=== PATIENT | male | born 1975 | race Caucasian/White ===

== ENCOUNTER 2020-08-02 10:34 | Outpatient (CLI) | payer MEDICARE, MEDICAID, SELFPAY ==
--- NOTE | ~2020-08-02 | US_ITS ---
EXAMINATION: US venous doppler [facility] DATE: 08/02/2020 11:15 INDICATION: Bilateral lower limb swelling TECHNIQUE: Dao scale images without and with compression and Doppler images of the bilateral lower e xtremity veins were obtained. COMPARISON: None FINDINGS: The bilateral peroneal veins are not well demonstrated. The right common femoral vein, profunda femoral vein, femoral vein, popliteal vein, posterior tibial veins, and greater saphenous vein are patent. The left common femoral vein, profunda femoral vein, femoral vein, popliteal vein, posterior tibial v eins, and greater saphenous vein are patent. IMPRESSION: 1. Patent bilateral lower extremity veins. No evidence of deep venous thrombosis. Reviewed, dictated and finalized at location A. IMPRESSION: 1. Patent bilateral lower extremity veins. No evidence of deep venous thrombosi s.
== END 2020-08-02 10:35 | disposition home or self-care (01) ==
PROVIDERS: PCP Internal Medicine; Visit Provider Internal Medicine
DX: R60.9 Edema, unspecified (principal)
CPT/HCPCS: 93970

== ENCOUNTER 2023-06-04 09:50 | Emergency (ER) | payer MEDICARE, MEDICAID, SELFPAY ==
--- NOTE | ~2023-06-04 | US_ITS ---
EXAMINATION: US venous doppler [facility] DATE: 06/04/2023 14:15 INDICATION: Left lower limb pain, swelling and erythema TECHNIQUE: Grayscale ultrasound images without and with compression and Doppler ultrasound images of the left lower extremity veins were obtained. COMPARISON: None. FINDINGS: The visualized portions of left common femoral vein, profunda (deep) femoral vein, femoral vein, popl iteal vein, peroneal veins, posterior tibial veins, gastrocnemius vein and greater saphenous vein out flow are patent. There is focal region of edema in the deep subcutaneous fat along the anterior left lower leg reportedly at the region of concern which can be seen in setting of cellulitis. IMPRESSION: 1. No deep venous thrombosis in the left lower limb. Reviewed, dictated and finalized at location A.
[2023-06-04 10:58] VITALS: BP 125/85; PULSE 100; RESP 20; TEMP 36.3; O2SAT 95
[2023-06-04 13:06] LABS: Basophils Absolute Auto 0.1 K/mm3 (0.0-0.1); Eosinophils Absolute Auto 0.2 K/mm3 (0-0.3); Eosinophils Percent Auto 2.2 % (0-4.4); Hematocrit 43.9 % (42.0-52.0); Hemoglobin 14.4 g/dL (14.0-18.0); Immature Granulocyte Absolute 0.06 K/mm3 (0.00-0.031); Immature Granulocyte Percent A 0.7 % (0-0.5); Lymphocytes Absolute Auto 1.93 K/mm3 (0.9-3.2); Lymphocytes Percent Auto 24.1 % (18.3-44.2); Mean Corpuscular HGB Conc 32.8 g/dl (32-36); Mean Corpuscular Hemoglobin 29.5 pg (26-34); Mean Platelet Volume 10.4 fl (7.4-10.4); Monocytes Absolute Auto 0.6 K/mm3 (0.1-0.6); Neutrophils Absolute Auto 5.2 K/mm3 (1.3-6.7); Platelet Count Result 170 k/mm3 (150-375); Red Blood Count 4.88 M/mm3 (4.6-6.20); Red Cell Distribution Width 14.1 % (11.5-14.5)
--- NOTE | 2023-06-04 13:13 | ED.GENADULT ---
HPI - General Adult General Chief complaint: Skin/Abscess/Foreign Body Stated complaint: LLE infection? Time Seen by Provider: 06/04/23 12:17 History of Present Illness HPI narrative: 48-year-old male presenting to the emergency department for evaluation of worsening left lower extremity erythema. Patient is diabetic but has no prior history of cellulitis. Patient began developing symptoms on the at 13th and then was started on clindamycin as outpatient on the . Patient states yesterday he had increased generalized fatigue and presented to [facility]. At [facility] he was treated with IV antibiotics and they were going to admit him but they did not have a bed was available. Patient became frustrated with the ER bed he was an and left AMA. Related Data Allergies Allergy/AdvReac Type Severity Reaction Status Date / Time No Known Allergies Allergy Verified 06/04/23 12:34 Review of Systems Review of Systems: All systems reviewed & are unremarkable except as noted in HPI and below PMFSH Social History Social History Alcohol intake: current Exam Narrative: APPEARANCE: Well appearing, no pain, no distress, well-nourished. HEAD: normocephalic, atraumatic. EYES: PERRLA/EOMI, conjunctivae clear. NOSE: Normal no drainage NECK: Supple. No adenopathy, no masses. RESPIRATORY: Airway patent, respirations nonlabored. Clear to auscultation bilaterally, no rales, rhonchi, wheezing. CARDIOVASCULAR: Regular rate and rhythm without murmurs rubs or gallops. ABDOMINAL: Soft, nontender, nondistended, normal bowel sounds MUSCULOSKELETAL: Moves all extremities. Strength/ROM intact, No edema, No calf tenderness. NEURO: Alert. Cranial nerves II through XII intact. Grossly intact SKIN: Bilateral lower extremity edema with anterior johnson erythema on the left lower extremity Course Course Emergency Course: Patient was started on Bactrim and patient was discharged home with close follow-up with primary care physician. Vital Signs Vital signs: Vital Signs Temperature 97.3 F L 06/04/23 10:58 Pulse Rate 100 06/04/23 10:58 Respiratory Rate 20 06/04/23 10:58 Blood Pressure 125/85 06/04/23 10:58 Pulse Oximetry 95 06/04/23 10:58 Oxygen Delivery Room Air 06/04/23 10:58 Temperature 97.3 F L 06/04/23 10:58 Pulse Rate 100 03/20/24 10:58 Respiratory Rate 20 06/04/23 10:58 Blood Pressure 125/85 06/04/23 10:58 Pulse Oximetry 95 06/04/23 10:58 Oxygen Delivery Room Air 06/04/23 10:58 Medical Decision Making MDM Narrative Medical decision making narrative: 48-year-old male presenting ED for evaluation of lower extremity cellulitis. Patient is afebrile with no leukocytosis stable hemoglobin of 14.4. Patient has no elevated lactic acid patient's CMP shows no acute abnormalities. Patient does have some mild erythema on the anterior portion of his johnson this is not circumferential. Patient will be started Bactrim as outpatient. Ultrasound was negative for DVT. Patient only took 4 days the clindamycin. Patient was encouraged close follow-up with his primary care physician. Patient is also educated on reasons to return to the emergency department. Differential Diagnosis Differential Diagnosis: DVT, cellulitis, lower extremity edema Vital Signs Vital Signs: Vital Signs Temperature 97.3 F L 06/04/23 10:58 Pulse Rate 100 06/04/23 10:58 Respiratory Rate 20 06/04/23 10:58 Blood Pressure 125/85 06/04/23 10:58 Pulse Oximetry 95 06/04/23 10:58 Oxygen Delivery Room Air 06/04/23 10:58 Temperature 97.3 F L 06/04/23 10:58 Pulse Rate 100 06/04/23 10:58 Respiratory Rate 20 06/04/23 10:58 Blood Pressure 125/85 06/04/23 10:58 Pulse Oximetry 95 06/04/23 10:58 Oxygen Delivery Room Air 06/04/23 10:58 Lab Data Lab results reviewed: Yes I reviewed the patient's lab results. 06/04/23 12:58 06/04/23 12:58 Labs: Lab Res
[2023-06-04 13:16] LABS: Lactic Acid Reflex 1.2 mmol/L (0.7-2.0)
[2023-06-04 13:17] LABS: Alanine Aminotransferase 45 U/L (6-50); Albumin Level 3.9 g/dL (3.5-5.1); Alkaline Phosphatase 89 U/L (38-126); Anion Gap 5 mmol/L (8-16); Aspartate Amino Transferase 43 U/L (17-59); Bilirubin,Total 0.7 mg/dL (0.2-1.3); Blood Urea Nitrogen 13 mg/dL (9-20); Calcium 8.7 mg/dL (8.4-10.2); Carbon Dioxide 29 mmol/L (22-30); Chloride 100 mmol/L (98-107); Estimated CRCL calculation 160 ml/min; Estimated Glomerular Filt Rate > 60; Glucose 362 mg/dL (65-110); Potassium 4.3 mmol/L (3.4-5.0); Sodium 134 mmol/L (137-145)
[2023-06-04 13:30] LABS: INR 1.1; Partial Thromboplastin Time 29.6 Seconds (22.3-36.8); Prothrombin Time 14.5 Seconds (11.1-14.7)
[2023-06-04] MEDS: SULFAMETHOXAZOLE/TRIMETHOPRIM 800/160 MG DS TABLET 1 TAB PO (14:07)
== END 2023-06-04 14:50 | disposition home or self-care (01) ==
PROVIDERS: Emergency Provider Emergency Medicine; PCP Internal Medicine
DX: L03.116 Cellulitis of left lower limb (principal); M79.662 Pain in left lower leg; E11.9 Type 2 diabetes mellitus without complications
CPT/HCPCS: 36415; 80053; 83605; 85025; 85610; 85730; 93971; 99284; A9270

== ENCOUNTER 2024-05-10 10:22 | Emergency (ER) | payer MEDICARE, MEDICAID, SELFPAY ==
[2024-05-10 10:51] VITALS: BP 151/83; PULSE 103; RESP 18; TEMP 36.2; O2SAT 98
--- OUTSIDE RECORDS SUMMARY | 2024-05-10 11:41 | XMS_ITS | Clinical Summary ---
Author Organization [facility] [employer] Address [address] [place] [address] Care Team Providers Care Certified Fire Investigator Name Role Phone Ashkan Bowling Porsche HINKLE-CARD CUTTER Primary Care Provider Source Comments [facility] [employer],non-owned Affiliates and Associated Physician Practices is amultiple site organization consisting of ambulatory clinics and hospital sitesin [place], [place], [place] and [place]. This disclosure is being madepursuant to the Care Everywhere program and may not contain all information available regarding this patient. Last updated 17.[facility] [employer] Allergies No known active allergies Medications * Be aware that medications may not be up to date on this document. Alwaysverify current medications with the patient. Medication Sig Dispensed Refills Start Date End Date Status buPROPion XL 24hr (WELLBUTRIN-XL) 300 MG tablet bupropion HCl XL 300 mg 24 hr tablet, extended release TK 1 T PO QD IN THE MORNING Active JANUMET 50-1000 MG tablet 2 tablets once daily 01/18/2019 Acti ve amLODIPine (NORVASC) 10 MG tablet amlodipine 10 mg tablet TK 1 T PO QD Active metFORMIN (GLUCOPHAGE) 500 MG tablet Take 2,000 mg by mouth once daily as needed Active HYDROcodone-acetamin ophen (NORCO) 10-325 MG tablet every 8 hours as needed 0 12/24/2018 Active naproxen (NAPROSYN) 500 MG tablet 2 times daily 01/18/2019 Active raNITIdine (ZANTAC) 150 MG tablet 3 times daily as needed 2 12/24/2018 Active Active Problems Problem Noted Date Diagnosed Date Acquired trigger finger 01/18/2019 Condyloma acuminatum 01/18/2019 Elevated liver enzymes 01/18/2019 Chronic midline low back pain with left-sided sc iatica 09/28/2015 Essential hypertension, benign 04/05/2014 DDD (degenerative disc disease), lumbar 06/23/19 14 Obesity, Class III, BMI 40-49.9 (morbid obesity) 06/22/2013 Family History Medical History Relation Name Comments COPD - Chronic Obstructive Pulmonary Disease Mother Diabetes - Type 2 Mother Relation Name Status Comments Mother Social History Tobacco Use Types Packs/Day Years Used Date Smoking Tobacco: Every Day Smokeless Tobacco: Never Comments:15 cigarettes/day Alcohol Use Standard Drinks/Week Comments Not Currently 0 (1 standard drink = 0.6 oz pur e alcohol) Sex and Gender Information Value Date Recorded Sex Assigned at Not on file Gender Identity Not on file Sexual Orientation Not on file Last Filed Vital Signs Vital Sign Reading Time Taken Comments Blood Pressure 131/80 01/18/2019 1:48 PM LAY MIDWIFE Pulse 92 01/18/2019 1:48 PM LAY MIDWIFE Temperature 36.7 C (98 F) 01/18/2019 1:48 PM LAY MIDWIFE Respiratory Rate 22 01/18/2019 1:48 PM LAY MIDWIFE Oxygen Saturation 94% 01/18/2019 1:48 PM LAY MIDWIFE Inhaled Oxygen Concentration - - Weight 152.9 kg (337 lb 1.6 oz) 01/18/2019 1:48 PM LAY MIDWIFE Height 193 cm (6' 4 ) 01/18/2019 1:48 PM LAY MIDWIFE Body Mass Index 41.03 01/18/2019 1:48 PM LAY MIDWIFE Plan of Treatment Health Maintenance Due Date Last Done Comments COLOGUARD (AGES 45-75) - COL ON CA SCREENING 1975 COLON MONITORING 1975 COLONOSCOPY - COLON CA SCREENING 1975 CT COLONOGRAPHY - COLON CA SCREENING 1975 Colorectal Cancer Screening 1975 FIT - COLON CA SCREENING 1975 FLEX SIG - COLON CA SCREENING 1975 LIPID TESTING 1975 HIV SCREENING 06/02/1990 HEPATITIS C SCREENING 05/29/1993 DTAP/TDAP/TD VACCINES (1 - Tdap) 06/02/1994 HEPATITIS B VACCINE (1 of 3 - 19+ 3-dose series) 06/02/1994 PNEUMOCOCCAL VACCINE (1 of 2 - PCV) 06/02/1994 SCREENING FOR DIABETES 01/18/2019 COVID-19 VACCINE (1 - 2023-2 5 season) 2023 INFLUENZA VACCINE (#1) 2023 DEPRESSION SCREENING 03/17/2024 ZOSTER VACCINE (1 of 2) 06/02/2025 HIB VACCINE Aged Out No longer eligi ble based on patient's age to complete this topic HPV VACCINE Aged Out No longer eligi ble based on patient's age to complete this topic MENINGOCOCCAL (Group B) VACCINE Aged Out No longer eligible based on patient's age to complete this topic MENINGOCOCCAL VACCINE Aged Out No noe dorie eligible based on patient's age to complete this topic Goals Goal Patient Goal Type Associated Problems Recent Progress Patient-Stated? Author Medication Management General No Nicky Mchugh, RN Note: Expected end date: ongoing Interventions: Take all medications as prescribed Care Teams Certified Fire Investigator Relationship Specialty Start Date End Date Ashkan Bowling, HEAD START ASSISTANT TEACHER-CARD CUTTER [address] [place] [address] PCP - General 01/18/19
--- OUTSIDE RECORDS SUMMARY | 2024-05-10 11:41 | XMS_ITS | Continuity of Care Document ---
Author Organization [facility] Address [address] [place] [address] [place] [address] Phone Care Team Providers Care Extension Clerk Name Role Phone Khanh Garcia MD Unavailable Unavailable Allergies, Adverse Reactions, Alerts Substance Reaction Status Criticality No Known Allergies Active No Inform ation Medications Medication Instructions Dosage Effective Dates (start - stop) Status Comments Hinckley 10 mg-325 mg tablet take 1 by Oral route 2 times every day as needed 1 - Active PRN for pain, avoid driving or oeprate machines Xanax 1 mg tablet take 1 tablet by oral route 2 times every day as needed 1 MG - Active PRN for anxi ety, avoid driving or oeprate machines Norvasc 10 mg tablet take 1 tablet by oral route every day 10 MG - Active losartan 50 mg tablet take 1 tablet by oral route every day 50 MG - Active Procedures Procedure Date OFFICE/OUTPATIENT VISIT, EST Advance Directives Directive Yes / No Effective Date File Name No Information Encounters Encounter Description Practice Location Reason(s) For Visit Diagnoses Date Provider Providers Copied on Encounter OFFICE/OUTPA TIENT VISIT, EST [facility], [address] [place], [id number], [place] tel:[phone] [facility] Medicine chronic pain (chief complaint) anxiety1 (chief complaint) HTN (chief complaint) Essential (primary) hypertensionChronic pain syndromeGeneralized Anxiety Disorder [address] [place], [id number] , [place]. tel:[phone] Referring Provider: Khanh Garcia [address] [place] [address], [id number]. tel:[phone] Family History Family Member Type Diagnosis Age At Onset Father Problem (finding) Alive and well Mother Problem (finding) Mother Problem (finding) of lung CA Brother Problem (finding) Alive and well Father Problem (finding) uknknown Payers Payer name Insurance type Covered libertarian ID Authoriza tion(s) No Information Social History Type Description Quantity Date Captured Comments Alcohol Use Details No Caffeine Use Details Unknown Tobacco Use Status Cigarette smoker Smoking Status Current some day smoker Smoking Tobacco Use Details Cigarette: No Details Available Cigarette: No Details Available Sex Male Vital Signs Date / Time: Height Weight BMI Pulse Rate Blood Pressure Temperature Respiratory Rate Body Surface Area Head Circumference BMI percentile Pulse Ox Inhaled Ox 2:55 PM 76.00 in 321.00 lbs 39.0 7 kg/m eter (2) 96 /min 141/89 mm[Hg] 98.1 F 18 /min Chief Complaint And Reason For Visit From encounter dated '04/30/2016 13:45'. chronic pain (chief complaint). Description: Pt has chronic neck and back pain Pt has been taking nroco up to 6 per day from physician in [place] for chronic neck and back apin Pt denie any loss of blladder control. Pt denies any urine retention. Pt was told he needs to see PCP in [place]. Pt has 8/10 paink.pt has sciaita and leg numbness anxiety1 (chief complaint). Description: Pt has chronic anxiety Pt denies any depression or any suicidal thought Pt atkes xanax 2 mg TID from the physician in [place] Pt states that it is the only meds helping his anxiety Pt denie sany crying spells. HTN (chief complaint). Description: Pt takes losatan and norvasc. His BP is stable Plan Of Treatment Date Type Action Status No Information History Of Present Illness Encounter Date Complaint History Of Prese nt Illness chronic pain Pt has chronic n rogelio and back pain Pt has been taking nroco up to 6 per day from physician in [place] for chronic neck and back apin Pt denie any loss of blladder control. Pt denies any urine retention. Pt was told he needs to see PCP in [place]. Pt has 8/10 paink. pt has sciaita and leg numbness HTN Pt takes losatan and norvasc. His BP is stable anxiety1 Pt has chronic a nxiety Pt denies any depression or any suicidal thought Pt atkes xanax 2 mg TID from the physician in [place] Pt states that it is the only meds helping his anxiety Pt denie sany crying spells. Instructions Date Instruction Additional Infor mation Prescribed Activity and Exercise Education Related to Dietary Surveillance and Counseling Prescribed Diet Educ ation/Lifestyle Education Regarding Diet Related to Dietary Surveillance and Counseling Assessments Type Assessment Date assessment Essential (primary) hypertension assessment Chronic pain syndrome 7 assessment Generalized Anxiety Disorder Apr Mental Status Date Cognitive Assessment Orientation - [place] ed to time, place, person, situation.
--- OUTSIDE RECORDS SUMMARY | 2024-05-10 11:41 | XMS_ITS | Referral Summary ---
Author Organization [facility] Address [address] [address] Care Team Providers Care Litigation Claim Representative Name Role Phone Dash Ashkan Porsche HINKLE-DISTRIBUTION OPERATIONS SUPERVISOR Primary Care Provider Source Comments [facility],non-owned Affiliates and Associated Physician Practices is amultiple site organization consisting of ambulatory clinics and hospital sitesin [place], [place], [place] and [place]. This disclosure is being madepursuant to the Care Everywhere program and may not contain all information available regarding this patient. Last updated 17.[facility] Allergies No known active allergies Medications * [...] Class III, BMI 40-49.9 (morbid obesity) 06/22/2013 Social History Tobacco Use Types Packs/Day Years [...] Comments Blood Pressure 131/80 01/18/2019 1:48 PM STEEL POST INSTALLER SUPERVISOR Pulse 92 01/18/2019 1:48 PM STEEL POST INSTALLER SUPERVISOR Temperature 36.7 C (98 F) 01/18/2019 1:48 PM STEEL POST INSTALLER SUPERVISOR Respiratory Rate 22 01/18/2019 1:48 PM STEEL POST INSTALLER SUPERVISOR Oxygen Saturation 94% 01/18/2019 1:48 PM STEEL POST INSTALLER SUPERVISOR Inhaled Oxygen Concentration - - Weight 152.9 kg (337 lb 1.6 oz) 01/18/2019 1:48 PM STEEL POST INSTALLER SUPERVISOR Height 193 cm (6' 4 ) 01/18/2019 1:48 PM STEEL POST INSTALLER SUPERVISOR Body Mass Index 41.03 01/18/2019 1:48 PM STEEL POST INSTALLER SUPERVISOR Plan of Treatment Not on file Goals Goal Patient Goal Type Associated Problems Recent Progress Patient-Stated? Author Medication Management General No Nicky Mchugh, RN Note: Expected end date: ongoing Interventions: Take all medications as prescribed Care Teams Litigation Claim Representative Relationship Specialty Start Date End Date Ashkan Bowling, SIDING INSTALLER-DISTRIBUTION OPERATIONS SUPERVISOR [facility] [place] [address] PCP - General 01/18/19
--- OUTSIDE RECORDS SUMMARY | 2024-05-10 11:41 | XMS_ITS | Clinical Summary ---
Author Organization [facility] Address [facility] [place] [address] Care Team Providers Care Flight Engineer Helicopter Name Role Phone Unavailable Primary Care Provider Unavailabl e Medications No known medications Social History Tobacco Use Types Packs/Day Years Used Date Smoking Tobacco: Never Assessed Sex and Gender Information Value Date Recorded Sex Assigned at Not on file Legal Sex Male 4:59 PM CDT Gender Identity Not on file Sexual Orientation Not on file Last Filed Vital Signs Vital Sign Reading Time Taken Comments Blood Pressure 147/97 09/26/2017 10:13 AM CDT Pulse 93 09/26/2017 10:13 AM CDT Temperature - - Respiratory Rate - - Oxygen Saturation - - Inhaled Oxygen Concentration - - Weight 159.7 kg (352 lb) 09/26/2017 10:13 AM CDT Height 193 cm (6' 4 ) 09/26/2017 10:13 AM CDT Body Mass Index 42.85 09/26/2017 10:13 AM CDT Plan of Treatment Health Maintenance Due Date Last Done Comments Colorectal Cancer Screening Colonoscopy (10 Years) 1975 Annual Physical 06/02/1978 PHQ-2 (Physician [place]) 1987 Hepatitis C 06/02/1993 DTaP, Tdap and Td Vaccines ( 1 - Tdap) 06/02/1994 Hepatitis B Vaccines (1 of 3 - 19+ 3-dose series) 06/02/1994 COVID-19 Vaccine (2023-2 5 season) 2023 Influenza Adult (#1) 2023 PHQ-2 (Physician [place]) 03/17/2024 Meningococcal B Vaccine Aged Out No l onger eligible based on patient's age to complete this topic Meningococcal Vaccine Aged Out No noe dorie eligible based on patient's age to complete this topic Pneumococcal Vaccine: Pediat rics (0 to 5 Years) and At-Risk Patients (6 to 64 Years) Aged Out No longer eligible b ased on patient's age to complete this topic RSV Immunizations Under 20 Months Aged Out No longer eligible based on patient's age to complete this topic Insurance MEDICAID
--- OUTSIDE RECORDS SUMMARY | 2024-05-10 11:41 | XMS_ITS | Patient Health Summary ---
Author Organization [facility] Address [address] [place] [address] Care Team Providers Care Animal Behaviorist Name Role Phone Ashkan Bowling Porsche [facility] Primary Care Provider Note from [facility],non-owned Affiliates and Associated Physician Practices is amultiple site organization consisting of ambulatory clinics and hospital sitesin [place], [place], [place] and [place]. This disclosure is being madepursuant to the Care Everywhere program and may not contain all information available regarding this patient. Last updated 17.[facility] Allergies No known active allergies Medications * Be aware that medications may not be up to date on this document. Always verify current medications with the patient. * buPROPion XL 24hr (WELLBUTRIN-XL) 300 MG tablet bupropion HCl XL 300 mg 24 hr tablet, extended release TK 1 T PO QD IN THE MORNING * JANUMET 50-1000 MG tablet(Started 01/18/2019) 2 tablets once daily * amLODIPine (NORVASC) 10 MG tablet amlodipine 10 mg tablet TK 1 T PO QD * metFORMIN (GLUCOPHAGE) 500 MG tablet Take 2,000 mg by mouth once daily as needed * HYDROcodone-acetaminophen (NORCO) 10-325 MG tablet(Started 12/24/2018) every 8 hours as needed * naproxen (NAPROSYN) 500 MG tablet(Started 01/18/2019) 2 times daily * raNITIdine (ZANTAC) 150 MG tablet(Started 12/24/2018) 3 times daily as needed 2 refills left Active Problems Problem Noted Date Diagnosed Date [...] Comments Blood Pressure 131/80 01/18/2019 1:48 PM PATIENT SERVICE COORDINATOR Pulse 92 01/18/2019 1:48 PM PATIENT SERVICE COORDINATOR Temperature 36.7 C (98 F) 01/18/2019 1:48 PM PATIENT SERVICE COORDINATOR Respiratory Rate 22 01/18/2019 1:48 PM PATIENT SERVICE COORDINATOR Oxygen Saturation 94% 01/18/2019 1:48 PM PATIENT SERVICE COORDINATOR Inhaled Oxygen Concentration - - Weight 152.9 kg (337 lb 1.6 oz) 01/18/2019 1:48 PM PATIENT SERVICE COORDINATOR Height 193 cm (6' 4 ) 01/18/2019 1:48 PM PATIENT SERVICE COORDINATOR Body Mass Index 41.03 01/18/2019 1:48 PM PATIENT SERVICE COORDINATOR Care Teams Animal Behaviorist Relationship Specialty Start Date End Date Ashkan Bowling, FIRE MARSHAL REFINERY-AIR TRANSPORTATION PROVIDER [facility] [place] [address] PCP - General 01/18/19
--- OUTSIDE RECORDS SUMMARY | 2024-05-10 11:41 | XMS_ITS | CONTINUITY OF CARE DOCUMENT ---
Author Name izzy magana Address Unknown Organization [facility] Address [address] [place] [address] Phone [phone] Care Team Providers Care Cinder Snapper Name Role Phone Art Lopez MD Unavailable [phone] Art Lopez MD Unavailable [phone] INSURANCE PROVIDERS Payer name Policy type / Coverage type [place] red republican ID [place] MEDICARE Medicare [id number] HEALTHCARE AND FAMILY SERVICES Medicaid 1 [id number]
--- OUTSIDE RECORDS SUMMARY | 2024-05-10 11:41 | XMS_ITS | Clinical Summary ---
Author Organization [facility] Address [address] [place] [address] Care Team Providers Care Stock Clerk Name Role Phone Unavailable Primary Care Provider Unavailabl e Allergies Active Allergy Reactions Criticality Noted Date Comments Lisinopril Other (See Comments) 06/22/2013 Dizziness Medications losartan (COZAAR) 50 mg tablet TAKE 1 TABLET(50 MG) BY MOUTH DAILY 30 Tablet 5 02/02/2016 Active amLODIPine (NORVASC) 5 mg tablet Take 1 Tablet (5 mg) by mouth daily. 30 Tablet 5 03/30/2016 Active HYDROcodone-[place] taminophen (NORCO) 10-325 mg Tablet Take 1 Tablet by mouth every 4 hours as needed for Pain, Moderate or Pain, Severe. Max Daily Amount: 6 Tablet 180 Tablet 04/01/2016 Active ALPRAZolam (XANAX) 2 mg tablet Take 1 Tablet (2 mg) by mouth 3 times daily as needed for Anxiety. 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 05/2016 Chronic midline low back pain with left-sided sc iatica 09/28/2015 Essential hypertension, benign 04/05/2014 DDD (degenerative disc disease), lumbar 06/23/19 14 Anxiety 06/22/2013 Obesity, Class III, BMI 40-49.9 (morbid obesity) 06/22/2013 SHAYY (obstructive sleep apnea) 06/22/2013 Smoker 06/22/2013 Resolved Problems Problem Noted Date Diagnosed Date Resolved Date Opioid dependence, daily use 01/01/2016 03/19/2016 Chronic, continuous use of opioids 09/07/2015 01/01/2016 Chronic narcotic dependence 12/15/2014 09/07/2015 Numbness and tingling of both legs 09/22/2014 09/28/2015 Right foot pain 10/11/2013 09/28/2015 Chronic low back pain 06/22/20132016 Depression 06/22/2013 04/05/2014 Essential hypertension, benign 06/22/2013 08/11/2013 Family History Medical History Relation Name Comments Depression Brother 1 Seizures Brother 1 Migraines Brother 2 Asthma Mother Depression Mother Diabetes Mother High Cholesterol Mother Hypertension Mother Lung Cancer Mother Other Mother RA Thyroid Disease Mother Asthma Son Relation Name Status Comments Brother 1 Alive Brother 2 Mother Alive Son Alive Social History Tobacco Use Types Packs/Day Years Used Date Smoking Tobacco: Every Day Cigarettes 0.5 20 Smokeless Tobacco: Never Tobacco Cessation:Ready to Q uit: Yes; Counseling Given: Yes Alcohol Use Standard Drinks/Week Comments Yes 0 (1 standard drink = 0.6 oz pur e alcohol) Sex and Gender Information Value Date Recorded Sex Assigned at Not on file Legal Sex Male 1:48 PM CDT Gender Identity Not on file Sexual Orientation Not on file 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 Not on file Not on file Not o n file Last Filed Vital Signs Vital Sign Reading Time Taken Comments Blood Pressure 128/88 01/01/2016 1:19 PM CDT Pulse 103 01/01/2016 1:19 PM CDT Temperature - - Respiratory Rate - - Oxygen Saturation 94% 01/01/2016 1:19 PM CDT Inhaled Oxygen Concentration - - Weight 147 kg (324 lb) 01/01/2016 1:19 PM CDT Height 193 cm (6' 4 ) 01/01/2016 1:19 PM CDT Body Mass Index 39.44 01/01/2016 1:19 PM CDT Plan of Treatment Health Maintenance Due Date Last Done Comments DTAP/TDAP/TD VACCINES (1 - Tdap) 06/02/1994 HEPATITIS B VACCINES (1 of 3 - + 3-dose series) 05/15 COLORECTAL SCREENING 06/02/2020 Colorectal Cancer Screening 06/02/2020 FIT-DNA Q 3 years 06/02/2020 FIT/FOBT Q 1 year 06/02/2020 Flex Sig/CT Colonography Q 5 years 06/02/2020 INFLUENZA VACCINE (#1) 2023
[2024-05-10 13:12] LABS: Basophils Absolute Auto 0.1 K/mm3 (0.0-0.1); Basophils Percent Auto 0.9 % (0.2-1.2); Eosinophils Absolute Auto 0.2 K/mm3 (0-0.3); Hemoglobin 15.4 g/dL (14.0-18.0); Immature Granulocyte Absolute 0.06 K/mm3 (0.00-0.031); Immature Granulocyte Percent A 0.7 % (0-0.5); Lymphocytes Absolute Auto 2.87 K/mm3 (0.9-3.2); Lymphocytes Percent Auto 31.5 % (18.3-44.2); Mean Corpuscular HGB Conc 33.5 g/dl (32-36); Mean Corpuscular Hemoglobin 30.1 pg (26-34); Mean Corpuscular Volume 89.8 fl (80-100); Mean Platelet Volume 9.4 fl (7.4-10.4); Monocytes Absolute Auto 0.8 K/mm3 (0.1-0.6); Monocytes Percent Auto 9.2 % (2.6-8.5); Neutrophils Absolute Auto 5.1 K/mm3 (1.3-6.7); Neutrophils Percent Auto 55.7 % (45.5-73.1); Platelet Count Result 222 k/mm3 (150-375); Red Blood Count 5.12 M/mm3 (4.6-6.20); Red Cell Distribution Width 13.3 % (11.5-14.5); White Blood Count 9.1 K/mm3 (4.5-10.0)
[2024-05-10 13:30] LABS: Alanine Aminotransferase 23 U/L (6-50); Albumin Level 4.3 g/dL (3.5-5.1); Alkaline Phosphatase 57 U/L (38-126); Anion Gap 12 mmol/L (4-12); Aspartate Amino Transferase 23 U/L (17-59); Bilirubin,Total 0.7 mg/dL (0.2-1.3); Blood Urea Nitrogen 17 mg/dL (9-20); Calcium 9.5 mg/dL (8.4-10.2); Carbon Dioxide 27 mmol/L (22-30); Chloride 102 mmol/L (98-107); Estimated CRCL calculation 100 ml/min; Estimated Glomerular Filt Rate > 60; Glucose 96 mg/dL (65-110); Lipase 40 U/L (23-300); Potassium 4.6 mmol/L (3.4-5.0); Sodium 141 mmol/L (137-145)
--- NOTE | 2024-05-10 13:47 | ED_ITS ---
HPI - Abdominal Pain General Chief Complaint: Abdominal Pain Stated Complaint: abd pain Focused HPI:48-year-old male presents to emergency department for epigastric abdominal pain. Patient states last Friday he began to be constipated, went to [facility] on Friday. States he received 3 L of fluids which initiated bowel movement. He was then discharged home with a diagnosis of abdominal pain and dehydration. He states he was feeling better and Friday night he had pizza and bread sticks which made epigastric abdominal pain return. He then had [employer] last night which again made the pain worse and has been persistent in his epigastrium since. Denies nausea vomiting, chest pain or shortness of breath, melena or hematochezia. He takes omeprazole 40 mg twice daily. GENERAL: Well-appearing, well-nourished, and in no acute distress. HEAD: Normocephalic, atraumatic. CHEST: Clear to auscultation. ?No respiratory distress. HEART: Regular rate and rhythm.? NEURO: ?Alert and oriented x3. Patient screened in triage and initial orders placed.? ?Additional care and disposition to be based upon?diagnostic testing and treatment. Related Data Allergies Allergy/AdvReac Type Severity Reaction Status Date / Time No Known Allergies Allergy Verified 06/04/23 12:34 [facility] Social History Social History Alcohol intake: current Course Vital Signs Vital signs: Vital Signs Temperature 97.2 F L 05/10/24 10:51 Pulse Rate 103 H 05/10/24 10:51 Respiratory Rate 18 05/10/24 10:51 Blood Pressure 151/83 H 05/10/24 10:51 Pulse Oximetry 98 05/10/24 10:51 Oxygen Delivery Room Air 05/10/24 10:51 Temperature 97.2 F L 05/10/24 10:51 Pulse Rate 103 H 05/10/24 10:51 Respiratory Rate 18 05/10/24 10:51 Blood Pressure 151/83 H 05/10/24 10:51 Pulse Oximetry 98 05/10/24 10:51 Oxygen Delivery Room Air 05/10/24 10:51 MDM - Abdominal Pain Lab Data 05/10/24 13:04 05/10/24 13:04 Labs: Lab Results 05/10/24 Range/Units 13:04 WBC 9.1 (4.5-10.0) K/mm3 RBC 5.12 (4.6-6.20) M/mm3 Hgb 15.4 (14.0-18.0) g/dL Hct 46.0 (42.0-52.0) % MCV 89.8 (80-100) fl MCH 30.1 (26-34) pg MCHC 33.5 (32-36) g/dl RDW 13.3 (11.5-14.5) % Plt Count 222 (150-375) k/mm3 MPV 9.4 (7.4-10.4) fl Immature Gran % (Auto) 0.7 H (0-0.5) % Neut % (Auto) 55.7 (45.5-73.1) % Lymph % (Auto) 31.5 (18.3-44.2) % [place] % (Auto) 9.2 H (2.6-8.5) % Eos % (Auto) 2.0 (0-4.4) % Baso % (Auto) 0.9 (0.2-1.2) % Lymph # (Auto) 2.87 (0.9-3.2) K/mm3 [place] # (Auto) 0.8 H (0.1-0.6) K/mm3 Eos # (Auto) 0.2 (0-0.3) K/mm3 Baso # (Auto) 0.1 (0.0-0.1) K/mm3 Abs Immat Gran (auto) 0.06 H (0.00-0.031) K/mm3 Absolute Neuts (auto) 5.1 (1.3-6.7) K/mm3 Absolute Nucleated RBC 0.000 (0.0-0.012) K/mm3 Nucleated RBC % 0.0 (0.0-0.2) % Sodium 141 (137-145) mmol/L Potassium 4.6 (3.4-5.0) mmol/L Chloride 102 (98-107) mmol/L Carbon Dioxide 27 (22-30) mmol/L Anion Gap 12 (4-12) mmol/L BUN 17 (9-20) mg/dL Creatinine 1.27 (0.7-1.3) mg/dL Estim Creat Clear Calc 100 ml/min Estimated GFR > 60 (59 - ) Glucose 96 (65-110) mg/dL Calcium 9.5 (8.4-10.2) mg/dL Total Bilirubin 0.7 (0.2-1.3) mg/dL AST 23 (17-59) U/L ALT 23 (6-50) U/L Alkaline Phosphatase 57 (38-126) U/L Total Protein 8.0 (6.3-8.2) g/dL Albumin 4.3 (3.5-5.1) g/dL Lipase 40 (23-300) U/L Discharge Plan Discharge Clinical Impression: Abdominal pain, epigastric Patient Disposition: Elopement After Seen by Prov Condition: Stable Instructions: Antibiotic Form Patient Language: Lao Prescriptions: No Action sulfamethoxazole-trimethoprim [Bactrim DS] 800-160 mg tablet 1 tablet PO Q12H 7 Days Qty: 14 0RF Follow-up/Referrals: Medina,MD Dg [Primary Care Provider] -
--- OUTSIDE RECORDS SUMMARY | 2024-05-10 16:02 | XMS_ITS | CONTINUITY OF CARE DOCUMENT ---
Author Name izzy magana Address Unknown Organization [facility] Address [address] [place] [address] Phone [phone] Care Team Providers Care Cyber Systems Administrator Name Role Phone Art Lopez MD Unavailable [phone] Art Lopez MD Unavailable [phone] INSURANCE PROVIDERS Payer name Policy type / Coverage type [place] red [employer] party ID [place] [employer] Medicare [id number] HEALTHCARE AND FAMILY SERVICES Medicaid 1 [id number]
--- OUTSIDE RECORDS SUMMARY | 2024-05-10 16:02 | XMS_ITS | Clinical Summary ---
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
--- OUTSIDE RECORDS SUMMARY | 2024-05-10 16:02 | XMS_ITS | Clinical Summary ---
Author Organization [facility] Address [facility] [place] [address] Care Team Providers Care Scientific Process Operator Name Role Phone Unavailable Primary Care Provider [...] Years) 1975 Annual Physical 06/02/1978 PHQ-2 (Physician [place]) 1987 Hepatitis C 06/02/1993 DTaP, Tdap and Td Vaccines ( 1 - Tdap) 06/02/1994 Hepatitis B Vaccines (1 of 3 - 19+ 3-dose series) 06/02/1994 COVID-19 Vaccine (2023-2 5 season) 2023 Influenza Adult (#1) 2023 PHQ-2 (Physician [place]) 03/17/2024 Meningococcal B Vaccine Aged Out No [...]
--- OUTSIDE RECORDS SUMMARY | 2024-05-10 16:03 | XMS_ITS | Continuity of Care Document ---
Author Organization [facility] Address [address] [place] [address] [place] [address] Phone Care Team Providers Care Slab Off Mill Tender Name Role Phone Khanh Garcia MD Unavailable Unavailable Allergies, Adverse Reactions, Alerts Substance Reaction Status Criticality No Known Allergies Active No Inform ation Medications Medication Instructions Dosage Effective Dates (start - stop) Status Comments losartan 50 mg tablet take 1 tablet by oral route every day 50 MG - Active Norvasc 10 mg tablet take 1 tablet by oral route every day 10 MG - Active Xanax 1 mg tablet take 1 tablet by oral route 2 times every day as needed 1 MG - Active PRN for anxi ety, avoid driving or oeprate machines [place] 10 mg-325 mg tablet take 1 by Oral route 2 times every day as needed 1 - Active PRN for pain, avoid driving or oeprate machines Procedures Procedure Date OFFICE/OUTPATIENT VISIT, EST Advance Directives Directive Yes / No Effective Date File Name No Information Encounters Encounter Description Practice Location Reason(s) For Visit Diagnoses Date Provider Providers Copied on Encounter OFFICE/OUTPA TIENT VISIT, EST [facility], [address] [place], [id number], [place] tel:[phone] [facility] chronic pain (chief complaint) anxiety1 (chief complaint) HTN (chief complaint) Essential (primary) hypertensionChronic pain syndromeGeneralized Anxiety Disorder [address] [place], [place], [id number] , [place]. tel:[phone] Referring Provider: Zack Espinoza [facility] [place], [id number]. tel:[phone] Family History Family Member Type Diagnosis Age At Onset Father Problem (finding) Alive and well Mother Problem (finding) Mother Problem (finding) of lung CA Brother Problem (finding) Alive and well Father Problem (finding) uknknown Payers Payer name Insurance type Covered democrat ID Authoriza tion(s) No Information Social History [...] to 6 per day from physician in [place] for chronic neck and back apin Pt denie any loss of blladder control. Pt denies any urine retention. Pt was told he needs to see PCP in [place]. Pt has 8/10 paink.pt has sciaita and [...] Date Complaint History Of Prese nt Illness anxiety1 Pt has chronic a nxiety Pt denies any depression or any suicidal thought Pt atkes xanax 2 mg TID from the physician in [place] Pt states that it is the only meds helping his anxiety Pt denie sany crying spells. HTN Pt takes losatan and norvasc. His BP is stable chronic pain Pt has chronic n rogelio and back pain Pt has been taking nroco up to 6 per day from physician in [place] for chronic neck and back apin Pt denie any loss of blladder control. Pt denies any urine retention. Pt was told he needs to see PCP in [place]. Pt has 8/10 paink. pt has sciaita and leg numbness Instructions Date Instruction Additional Infor mation Prescribed Activity and Exercise Education Related to Dietary Surveillance and Counseling Prescribed Diet Educ ation/Lifestyle Education Regarding Diet Related to Dietary Surveillance and Counseling Assessments Type Assessment Date assessment Essential (primary) hypertension assessment Chronic pain syndrome 7 assessment Generalized Anxiety Disorder Apr Mental Status Date Cognitive Assessment Orientation - Sharon ed to time, place, person, situation.
--- OUTSIDE RECORDS SUMMARY | 2024-05-10 16:03 | XMS_ITS | Patient Health Summary ---
Author Organization [facility] Address [address] [place] [address] Care Team Providers Care Descriptive Catalog Librarian Name Role Phone Ashkan Bowling Porsche [facility] Primary Care Provider Note from [facility],non-owned Affiliates and Associated Physician Practices is amultiple site organization consisting of ambulatory clinics and hospital sitesin [place], [place], [place] and [place]. This disclosure is being madepursuant to the Care Everywhere program and may not contain all information available regarding this patient. Last updated 17.[facility] Allergies No known active allergies Medications * [...] Comments Blood Pressure 131/80 01/18/2019 1:48 PM CAMP HOUSEKEEPER Pulse 92 01/18/2019 1:48 PM CAMP HOUSEKEEPER Temperature 36.7 C (98 F) 01/18/2019 1:48 PM CAMP HOUSEKEEPER Respiratory Rate 22 01/18/2019 1:48 PM CAMP HOUSEKEEPER Oxygen Saturation 94% 01/18/2019 1:48 PM CAMP HOUSEKEEPER Inhaled Oxygen Concentration - - Weight 152.9 kg (337 lb 1.6 oz) 01/18/2019 1:48 PM CAMP HOUSEKEEPER Height 193 cm (6' 4 ) 01/18/2019 1:48 PM CAMP HOUSEKEEPER Body Mass Index 41.03 01/18/2019 1:48 PM CAMP HOUSEKEEPER Care Teams Descriptive Catalog Librarian Relationship Specialty Start Date End Date Ashkan Bowling, CRTT-RN CASE MANAGEMENT [facility] [place] [address] PCP - General 01/18/19
--- OUTSIDE RECORDS SUMMARY | 2024-05-10 16:03 | XMS_ITS | Clinical Summary ---
Author Organization [facility] Address [address] [place] [address] Care Team Providers Care Hospice Fellow Name Role Phone Ashkan Bowling Porsche HINKLE-DIRECTOR OF EVENT SALES Primary Care Provider Source Comments [facility],non-owned Affiliates and Associated Physician Practices is amultiple site organization consisting of ambulatory clinics and hospital sitesin [place], [place], [place] and [place]. This disclosure is being madepursuant to the Care Everywhere program and may not contain all information available regarding this patient. Last updated 17.[facility] Allergies No known active allergies Medications * [...] Comments Blood Pressure 131/80 01/18/2019 1:48 PM SKEIN YARN DYER Pulse 92 01/18/2019 1:48 PM SKEIN YARN DYER Temperature 36.7 C (98 F) 01/18/2019 1:48 PM SKEIN YARN DYER Respiratory Rate 22 01/18/2019 1:48 PM SKEIN YARN DYER Oxygen Saturation 94% 01/18/2019 1:48 PM SKEIN YARN DYER Inhaled Oxygen Concentration - - Weight 152.9 kg (337 lb 1.6 oz) 01/18/2019 1:48 PM SKEIN YARN DYER Height 193 cm (6' 4 ) 01/18/2019 1:48 PM SKEIN YARN DYER Body Mass Index 41.03 01/18/2019 1:48 PM SKEIN YARN DYER Plan of Treatment Health Maintenance Due Date [...] Take all medications as prescribed Care Teams Hospice Fellow Relationship Specialty Start Date End Date Ashkan Bowling, PHYSICAL THERAPY COORDINATOR-DIRECTOR OF EVENT SALES [address] [place] [address] PCP - General 01/18/19
--- OUTSIDE RECORDS SUMMARY | 2024-05-10 16:03 | XMS_ITS | Referral Summary ---
Author Organization [facility] Address [address] [place] [address] Care Team Providers Care Mechanical Planner Name Role Phone Dash Ashkan Porsche HINKLE-KEY ATTENDANT Primary Care Provider Source Comments [facility],non-owned Affiliates and Associated Physician Practices is amultiple site organization consisting of ambulatory clinics and hospital sitesin [place], [place], [place] and [place]. This disclosure is being madepursuant to the Care Everywhere program and may not contain all information available regarding this patient. Last updated 17.[facility] Allergies No known active allergies Medications * [...] Comments Blood Pressure 131/80 01/18/2019 1:48 PM TEST BORER HELPER Pulse 92 01/18/2019 1:48 PM TEST BORER HELPER Temperature 36.7 C (98 F) 01/18/2019 1:48 PM TEST BORER HELPER Respiratory Rate 22 01/18/2019 1:48 PM TEST BORER HELPER Oxygen Saturation 94% 01/18/2019 1:48 PM TEST BORER HELPER Inhaled Oxygen Concentration - - Weight 152.9 kg (337 lb 1.6 oz) 01/18/2019 1:48 PM TEST BORER HELPER Height 193 cm (6' 4 ) 01/18/2019 1:48 PM TEST BORER HELPER Body Mass Index 41.03 01/18/2019 1:48 PM TEST BORER HELPER Plan of Treatment Not on file Goals Goal Patient Goal Type Associated Problems Recent Progress Patient-Stated? Author Medication Management General No Nicky Mchugh, RN Note: Expected end date: ongoing Interventions: Take all medications as prescribed Care Teams Mechanical Planner Relationship Specialty Start Date End Date Ashkan Bowling, CABLE STRANDER-KEY ATTENDANT [facility] [place] [address] PCP - General 01/18/19
== END 2024-05-10 14:32 | disposition left against medical advice (07) ==
PROVIDERS: Emergency Provider Physician Assistant; PCP Internal Medicine
DX: R10.13 Epigastric pain (principal)
CPT/HCPCS: 36415; 80053; 83690; 85025; 99283